=== PATIENT | female | born 1940 | race Caucasian/White ===

== ENCOUNTER 2017-09-22 15:25 | Emergency (ER) | payer MEDICARE ==
[2017-09-22] MEDS ORDERED: HYDROcodone/Acetaminophen 10/325 mg Tablet ONE (16:32)
--- NOTE | 2017-09-22 17:42 | RAD ---
TWO VIEWS RIGHT HIP: 09/22/17 HISTORY: Patient reports fall one year ago in which patient broke hip. Patient has continued to have pain, but the pain is now worse. FINDINGS: There are three long screws transfixing the right femoral neck. There is osteoarthritis involving the right hip joint with osteophytes present. There is narrowing of the medial joint space. No acute fra cture or dislocation is seen on this exam and there is no hardware complication. Vascular calcificati on seen in the femoral arteries. There is partial visualization of vascular stent in the superficial femoral artery at the level of the proximal thigh. IMPRESSION: 1. No acute osseous abnormality of the right hip. 2. Postsurgical changes right femoral neck. 3. Osteoarthritis with mild deformity of the right femoral head which is likely related to prior injury. POS: [facility]
== END 2017-09-22 17:45 | disposition home or self-care (01) ==
LOC: ERS 15:25
DX: M16.11 Unilateral primary osteoarthritis, right hip (principal); G89.29 Other chronic pain; I25.10 Atherosclerotic heart disease of native coronary artery without angina pectoris; K21.9 Gastro-esophageal reflux disease without esophagitis; E78.5 Hyperlipidemia, unspecified; I10 Essential (primary) hypertension; F41.9 Anxiety disorder, unspecified; F32.9 Major depressive disorder, single episode, unspecified; Z87.891 Personal history of nicotine dependence